=== PATIENT | male | born 1965 | race Caucasian/White ===

== ENCOUNTER 2023-10-19 10:39 | Outpatient (CLI) | payer BC, SELFPAY | END 2023-10-19 10:40 | disposition home or self-care (01) | PROVIDERS: PCP Family Medicine; Visit Provider Family Medicine | DX: Z00.00 Encounter for general adult medical examination without abnormal findings (principal); E11.9 Type 2 diabetes mellitus without complications; R97.20 Elevated prostate specific antigen [PSA]; R25.1 Tremor, unspecified; F41.9 Anxiety disorder, unspecified | CPT/HCPCS: 80053; 84443; G0103 ==

== ENCOUNTER 2024-08-28 11:04 | Outpatient (CLI) | payer BC, SELFPAY | END 2024-08-28 11:05 | disposition home or self-care (01) | PROVIDERS: PCP Family Medicine; Visit Provider Family Medicine | DX: E11.9 Type 2 diabetes mellitus without complications (principal); F32.A Depression, unspecified; F41.9 Anxiety disorder, unspecified; R25.1 Tremor, unspecified; G62.9 Polyneuropathy, unspecified; R20.0 Anesthesia of skin; R97.20 Elevated prostate specific antigen [PSA] | CPT/HCPCS: 80053; 80061; 82043; 82570; 82607 ==